=== PATIENT | male | born 1955 | race Caucasian/White ===

== ENCOUNTER 2017-08-24 13:29 | Inpatient (IN) | payer OTHER, MEDICAID ==
[~2017-08-24] VITALS: Ht 172.7 cm; Wt 142.5 kg
[2017-08-24 16:40] LABS: BASOPHIL % 0.7 % (0-2); PLATELET COUNT 284 x10^3mcL (130-400)
[2017-08-24 16:48] LABS: RED CELL DISTRIBUTION WIDTH 17.1 % (11.5-14.5)
[2017-08-24 17:11] LABS: UA SPECIFIC GRAVITY 1.015 (1.005-1.035); microscopic required? YES; urine erythrocyte 1+ (NEGATIVE)
[2017-08-24 17:17] LABS: ALKALINE PHOSPHATASE 89 U/L (46-116); ALT/SGPT 20 U/L (16-63); AST/SGOT 12 U/L (15-37); BILIRUBIN TOTAL 0.8 mg/dL (0.20-1.00); CALCIUM 7.9 mg/dL (8.5-10.1); CARBON DIOXIDE 27.9 mmol/L (21-32); CHLORIDE SERUM 99 mmol/L (98-107); CREATININE SERUM 0.9 mg/dL (0.7-1.3); GFR1 > 60 mL/min; GLUCOSE SERUM 122 mg/dL (74-106); LIPASE 85 IU/L (73-393); SODIUM SERUM 136 mmol/L (136-145); TOTAL PROTEIN, SERUM 7.5 g/dL (6.4-8.2)
[2017-08-24 17:23] LABS: ALBUMIN 3.3 g/dL (3.4-5.0); AMYLASE 24 U/L (25-115)
[2017-08-24 17:24] LABS: POTASSIUM SERUM 2.9 mmol/L (3.5-5.1)
[2017-08-24 20:58] LABS: T3 TOTAL 0.68 ng/mL
[2017-08-24 21:06] LABS: MAGNESIUM 1.8 mg/dL (1.8-2.4); PHOSPHOROUS 3.2 mg/dL (2.5-4.9)
[2017-08-24 21:21] LABS: FREE T4 1.23 ng/dL (0.76-1.46); FREE THYROXINE INDEX 3.1 ug/dL (1.4-4.5)
[2017-08-24 22:24] VITALS: BP 125/65
[2017-08-24 23:28] VITALS: BP 140/71
[2017-08-25 02:30] VITALS: Ht 172.7 cm; Wt 142.5 kg
[2017-08-25 04:38] VITALS: BP 131/82
[2017-08-25 04:49] VITALS: BP 151/80
[2017-08-25 06:46] LABS: PLATELET COUNT 240 x10^3mcL (130-400)
[2017-08-25 06:52] LABS: CALCIUM 8.3 mg/dL (8.5-10.1); CARBON DIOXIDE 26.8 mmol/L (21-32); CHLORIDE SERUM 101 mmol/L (98-107); CREATININE SERUM 0.8 mg/dL (0.7-1.3); GFR1 > 60 mL/min; GLUCOSE SERUM 103 mg/dL (74-106); PHOSPHOROUS 2.4 mg/dL (2.5-4.9); POTASSIUM SERUM 3.5 mmol/L (3.5-5.1); SODIUM SERUM 137 mmol/L (136-145)
[2017-08-25 06:54] LABS: BASOPHIL % 0 % (0-2)
[2017-08-25 09:43] VITALS: BP 137/79
[2017-08-25 13:30] VITALS: BP 131/78
[2017-08-25 17:30] VITALS: BP 122/58
[2017-08-25 22:22] VITALS: BP 134/74
[2017-08-26 06:23] VITALS: BP 130/79
[2017-08-26 06:45] LABS: CALCIUM 8.1 mg/dL (8.5-10.1); CARBON DIOXIDE 28.4 mmol/L (21-32); CHLORIDE SERUM 97 mmol/L (98-107); CREATININE SERUM 0.8 mg/dL (0.7-1.3); GFR1 > 60 mL/min; GLUCOSE SERUM 112 mg/dL (74-106); MAGNESIUM 2.1 mg/dL (1.8-2.4); PHOSPHOROUS 1.9 mg/dL (2.5-4.9); POTASSIUM SERUM 3.4 mmol/L (3.5-5.1); SODIUM SERUM 133 mmol/L (136-145)
[2017-08-26 07:47] LABS: BASOPHIL % 0.4 % (0-2); PLATELET COUNT 245 x10^3mcL (130-400)
[2017-08-26 07:48] LABS: RED CELL DISTRIBUTION WIDTH 15.8 % (11.5-14.5)
[2017-08-26 09:54] VITALS: BP 127/56
[2017-08-26 13:02] VITALS: BP 141/81
[2017-08-26 17:51] VITALS: BP 146/81
[2017-08-26 21:13] VITALS: BP 107/63
[2017-08-27 05:26] VITALS: BP 124/73
[2017-08-27 07:16] LABS: PLATELET COUNT 276 x10^3mcL (130-400)
[2017-08-27 07:22] LABS: RED CELL DISTRIBUTION WIDTH 16.3 % (11.5-14.5)
[2017-08-27 07:24] LABS: CALCIUM 8.6 mg/dL (8.5-10.1); CARBON DIOXIDE 27.8 mmol/L (21-32); CHLORIDE SERUM 97 mmol/L (98-107); CREATININE SERUM 0.9 mg/dL (0.7-1.3); GFR1 > 60 mL/min; GLUCOSE SERUM 118 mg/dL (74-106); MAGNESIUM 2.1 mg/dL (1.8-2.4); POTASSIUM SERUM 3.5 mmol/L (3.5-5.1); SODIUM SERUM 134 mmol/L (136-145)
[2017-08-27 07:30] VITALS: BP 135/71
[2017-08-27 11:48] LABS: ATYPICAL LYMPH 1 %; BAND NEUTROPHIL 4 % (0-10); BASOPHIL 0 % (0-2); MONOCYTE 9 % (0-7); SEGMENTED NEUTROPHILS 76 % (37-75)
[2017-08-27 11:49] LABS: PLATELET MORPHOLOGY PLATELETS NORMAL; rbc morphology (normal/abnorm) ABNORMAL (NORMAL)
[2017-08-27 13:21] VITALS: BP 152/88
[2017-08-27] MEDS ORDERED: LEVAQUIN750 MG PO (15:05)
[2017-08-27] MEDS ORDERED: FLA500 PO (15:06)
[2017-08-27] MEDS ORDERED: FLO4 PO (15:19)
[2017-08-27] MEDS ORDERED: NOR10T PO (15:24)
[2017-08-27] MEDS ORDERED: LAC PO (15:26)
[2017-08-27] MEDS ORDERED: MIRUD PO (15:27)
[2017-08-27] MEDS ORDERED: COL100 PO (15:27)
[2017-08-27] MEDS ORDERED: METP PO (15:28)
[2017-08-27] MEDS ORDERED: NPHOS PO (15:32)
[2017-08-27 16:29] VITALS: BP 151/79
[2017-08-27 16:51] VITALS: BP 151/79
== END 2017-08-27 17:18 | disposition home or self-care (01) | DRG 871 ==
LOC: ED 13:29 → DU 19:43
PROVIDERS: Emergency Medicine; Family Medicine
DX: A41.9 Sepsis, unspecified organism (principal); N17.0 Acute kidney failure with tubular necrosis; K57.32 Diverticulitis of large intestine without perforation or abscess without bleeding; Z68.42 Body mass index [BMI] 45.0-49.9, adult; N39.0 Urinary tract infection, site not specified; D68.69 Other thrombophilia; E44.1 Mild protein-calorie malnutrition; R65.20 Severe sepsis without septic shock; E11.65 Type 2 diabetes mellitus with hyperglycemia; E87.8 Other disorders of electrolyte and fluid balance, not elsewhere classified; M17.0 Bilateral primary osteoarthritis of knee; E87.6 Hypokalemia; E66.01 Morbid (severe) obesity due to excess calories; E83.39 Other disorders of phosphorus metabolism; Z99.3 Dependence on wheelchair; Z87.891 Personal history of nicotine dependence
CPT/HCPCS: 82962; 83880; 84439; 87804; J0295; J0744; J1956; J2405; J3010; J3480; J3490; J7030; Q0092; Q9967